=== PATIENT | female | born 1990 | race Caucasian/White ===

== ENCOUNTER 2019-12-27 19:24 | Emergency (ER) | payer MEDICAID ==
[~2019-12-27] VITALS: Ht 165.1 cm; Wt 80.0 kg
[~2019-12-27 19:24] MED LIST: FERR-63 PO; MULT-1116 PO
[2019-12-27 19:47] VITALS: BP 112/66
== END 2019-12-27 22:55 | disposition left against medical advice (07) ==
LOC: ER 19:24
DX: Z53.21 Procedure and treatment not carried out due to patient leaving prior to being seen by health care provider (principal)
CPT/HCPCS: 93005